=== PATIENT | female | born 1985 | race Caucasian/White ===

== ENCOUNTER 2016-08-30 01:38 | Inpatient (IN) | payer MEDICAID, MEDICARE ==
[~2016-08-30] VITALS: Ht 157.5 cm; Wt 79.4 kg
[2016-08-30 01:40] VITALS: BP 103/62; PULSE 82; RESP 28; TEMP 97.6; O2SAT 97
[2016-08-30] MEDS ORDERED: ALBUTEROL SULFATE 0.083% 2.5 MG/3 ML VIAL.NEB INH ONE ×2 (02:00→03:45)
[2016-08-30] MEDS ORDERED: IPRATROPIUM BROM 0.5 MG/2.5 ML VIAL.NEB (ATROVENT) INH ONE ×2 (02:00→03:45)
[2016-08-30] MEDS ORDERED: methylPREDNISolone SOD SUCC/PF 62.5 MG/ML VIAL IVP ONE ×2 (03:45→09:30)
[2016-08-30] MEDS ORDERED: MAGNESIUM SULFATE 1 GM in NS 100 ML IV ONE (03:45)
[2016-08-30] MEDS ORDERED: MAGNESIUM SULFATE 1 GM/2 ML VIAL ONE (04:01)
[2016-08-30 04:18] LABS: CALCIUM 8.9 mg/dL (8.4-11.0); CREATININE 0.79 mg/dL (0.55-1.30); POTASSIUM 3.7 mmol/L (3.5-5.1)
[2016-08-30 04:23] LABS: ALBUMIN 4.1 g/dL (3.4-4.8); TOTAL BILIRUBIN 0.3 mg/dL (0.0-1.0); TOTAL PROTEIN, SERUM 8.2 g/dL (6.4-8.3)
[2016-08-30 04:27] LABS: BASOPHILS # (AUTO) 0.1 K/uL (0.0-0.2); BASOPHILS % (AUTO) 0.9 % (0.0-2.0); EOSINOPHILS # (AUTO) 1.4 K/uL (0.0-0.4); HEMOGLOBIN 14.9 g/dL (12.0-16.0); LYMPHOCYTES # (AUTO) 3.5 K/uL (1.0-5.5); LYMPHOCYTES % (AUTO) 35.9 % (20.5-51.5); MEAN CORPUSCULAR HEMOGLOBIN 29 pg (27-31); MEAN CORPUSCULAR HGB CONC 33 % (32-36); MEAN CORPUSCULAR VOLUME 89 fL (79.0-98.0); MONOCYTES # (AUTO) 0.7 K/uL (0.0-1.0); MONOCYTES % (AUTO) 6.6 % (1.7-9.3); NEUTROPHILS # (AUTO) 4.2 K/uL (1.8-7.7); NEUTROPHILS % (AUTO) 42.6 % (40.0-70.0); PLATELET COUNT (AUTO) 291 K/uL (130-430); RED BLOOD CELL COUNT(AUTO) 5.08 MIL/uL (4.2-6.2); RED CELL DISTRIBUTION WIDTH 12.6 % (9.0-15.0); WHITE BLOOD COUNT (AUTO) 9.9 K/uL (4.8-10.8)
[2016-08-30] MEDS ORDERED: DOXYCYCLINE HYCLATE 100 MG in D5W 100 ML IV ONE (04:30)
[2016-08-30] MEDS ORDERED: DOXYCYCLINE HYCLATE 100 MG VIAL IV ONE (04:48)
[2016-08-30 05:10] VITALS: BP 120/60; PULSE 79; RESP 18; TEMP 98.6; O2SAT 95
[2016-08-30 06:41] VITALS: BP 120/60; PULSE 79
[2016-08-30] MEDS: ALBUTEROL SULFATE 0.083% 2.5 MG/3 ML VIAL.NEB INH SCH ×4 (07:00→20:14)
[2016-08-30] MEDS ORDERED: POTASSIUM CHLORIDE 10 MEQ TAB.PRT.SR PO PRN (08:00)
[2016-08-30] MEDS ORDERED: ONDANSETRON HCL 4 MG/2 ML VIAL IVP PRN (08:00)
[2016-08-30] MEDS ORDERED: ACETAMINOPHEN 325 MG TABLET PO PRN (08:00)
[2016-08-30] MEDS ORDERED: LORazepam 2 MG/ML VIAL IVP PRN (08:00)
[2016-08-30] MEDS ORDERED: MAGNESIUM SULFATE 50 ML IV PRN (08:00)
[2016-08-30] MEDS ORDERED: DOCUSATE SODIUM 100 MG CAPSULE PO PRN (08:00)
[2016-08-30] MEDS ORDERED: MORPHINE 2 MG/ML INJ. SYRINGE IVP PRN (08:00)
[2016-08-30] MEDS ORDERED: ZOLPIDEM TARTRATE 5 MG TABLET PO PRN (08:00)
[2016-08-30] MEDS ORDERED: SALMETEROL XINAFOATE 50 MCG 1 EA DISK.W.DEV INH SCH (09:00)
[2016-08-30] MEDS ORDERED: FLUC200T38 PO (11:21)
[2016-08-30] MEDS ORDERED: ALBMDI INH (11:25)
[2016-08-30 12:00] VITALS: BP 116/66; PULSE 72; RESP 21; TEMP 97; O2SAT 98
[2016-08-30] MEDS ORDERED: FLUCONAZOLE 200 MG TABLET (DIFLUCAN) PO ONE (15:30)
[2016-08-30 16:00] VITALS: BP 113/65; PULSE 97; RESP 21; TEMP 98; O2SAT 98
[2016-08-30 20:40] VITALS: BP 111/77; PULSE 97; RESP 18; TEMP 98.6; O2SAT 95
[2016-08-30] MEDS: methylPREDNISolone SOD SUCC/PF 62.5 MG/ML VIAL IVP SCH (21:40)
[2016-08-31] MEDS: ALBUTEROL SULFATE 0.083% 2.5 MG/3 ML VIAL.NEB INH SCH ×3 (02:26→11:45)
[2016-08-31 04:00] VITALS: BP 116/71; PULSE 65; RESP 17; TEMP 97.6; O2SAT 96
[2016-08-31 04:24] VITALS: BP 118/69; PULSE 62; RESP 18; TEMP 98; O2SAT 94
[2016-08-31 08:00] VITALS: BP 122/57; PULSE 81; RESP 18; TEMP 97.7; O2SAT 2
[2016-08-31] MEDS: methylPREDNISolone SOD SUCC/PF 62.5 MG/ML VIAL IVP SCH (08:31)
[2016-08-31] MEDS ORDERED: FLUCONAZOLE 200 MG TABLET (DIFLUCAN) PO SCH (09:00)
[2016-08-31] MEDS ORDERED: ALBMDI INH (11:14)
[2016-08-31 12:12] VITALS: BP 98/57; PULSE 56; RESP 16; TEMP 97.6; O2SAT 96
[2016-08-31] MEDS ORDERED: MONTELUKAST 10 MG TABLET PO SCH (18:00)
== END 2016-08-31 13:35 | disposition home or self-care (01) | DRG 141 ==
LOC: SED 01:38 → SMU 04:22
PROVIDERS: ADMIT General Practice; ATTEND General Practice
DX: J45.901 Unspecified asthma with (acute) exacerbation (principal); B38.0 Acute pulmonary coccidioidomycosis; E66.9 Obesity, unspecified; Z68.32 Body mass index [BMI] 32.0-32.9, adult
CPT/HCPCS: 36415; 71010; 80053; 85025; 87040-TC; 94640; 96365; 96375; 99285; J2930; J3475; J3490

== ENCOUNTER 2017-04-30 00:47 | Emergency (ER) | payer MEDICARE ==
[~2017-04-30] VITALS: Ht 157.5 cm; Wt 83.9 kg
[~2017-04-30 00:47] MED LIST: ALBMDI INH; FLUC200T38 PO
[2017-04-30 00:49] VITALS: BP_SYST 114
[2017-04-30] MEDS ORDERED: PREDNISONE 20 MG TABLET PO ONE (01:00)
[2017-04-30] MEDS ORDERED: IPRATROPIUM/ALBUTEROL SULFATE 3 ML AMPUL.NEB ONE (01:00)
[2017-04-30] MEDS ORDERED: IPRATROPIUM/ALBUTEROL SULFATE 3 ML AMPUL.NEB INH ONE (01:00)
[2017-04-30] MEDS ORDERED: ALBUTEROL SULFATE 0.083% 2.5 MG/3 ML VIAL.NEB INH ONE (02:30)
[2017-04-30 02:53] VITALS: BP_SYST 126
== END 2017-04-30 02:53 | disposition home or self-care (01) ==
LOC: SED 00:47
DX: J45.901 Unspecified asthma with (acute) exacerbation (principal)
CPT/HCPCS: 94150; 94640; 94760; 99284; J7512

== ENCOUNTER 2017-06-09 03:12 | Emergency (ER) | payer MEDICARE ==
[~2017-06-09] VITALS: Ht 157.5 cm; Wt 79.4 kg
[2017-06-09] MEDS ORDERED: MAGNESIUM SULFATE 50 ML IV ONE (03:15)
[2017-06-09] MEDS ORDERED: ALBUTEROL SULFATE 0.083% 2.5 MG/3 ML VIAL.NEB INH ONE (03:15)
[2017-06-09] MEDS ORDERED: IPRATROPIUM/ALBUTEROL SULFATE 3 ML AMPUL.NEB INH ONE (03:15)
[2017-06-09] MEDS ORDERED: NACL 0.9% 1,000 ML IV ONE (03:15)
[2017-06-09] MEDS ORDERED: methylPREDNISolone SOD SUCC/PF 62.5 MG/ML VIAL IVP ONE (03:15)
[2017-06-09 03:16] VITALS: BP_SYST 164
[2017-06-09] MEDS ORDERED: IPRATROPIUM/ALBUTEROL SULFATE 3 ML AMPUL.NEB ONE (03:21)
[2017-06-09 04:50] VITALS: BP_SYST 138
== END 2017-06-09 04:50 | disposition home or self-care (01) ==
LOC: SED 03:12
DX: J45.901 Unspecified asthma with (acute) exacerbation (principal)
CPT/HCPCS: 71010; 94640; 96365; 96375; 99284; J2930; J3475; J7030